=== PATIENT | male | born 1985 | race Hispanic/Latino ===

== ENCOUNTER 2017-12-01 15:02 | Outpatient (CLI) | payer BC | END 2017-12-01 15:03 | disposition home or self-care (01) | LOC: BICULT 15:02 | PROVIDERS: ATTEND Student in an Organized Health Care Education/Training Program | DX: N50.89 Other specified disorders of the male genital organs (principal); N43.3 Hydrocele, unspecified | CPT/HCPCS: 76870; 93976 ==

== ENCOUNTER 2017-12-23 12:41 | Outpatient (CLI) | payer BC ==
[2017-12-23 13:28] LABS: #Eosinphils 0.1 thou/uL (0.0-0.7); #Lymphocytes 2.6 thou/uL (1.20-3.40); #Monocytes 0.6 thou/uL (0.11-0.59); #Neutrophils 5.7 thou/uL (1.40-6.50); %Basophils 0.5 % (0.0-1.0); %Eosinophils 1.2 % (0.0-10.0); %Lymphocytes 28.9 % (21.0-51.0); %Neutrophils 62.5 % (42.0-75.0); Hemoglobin 15.2 g/dL (14.0-18.0); Mean Corpuscular HGB CONC 35.8 g/dL (32.0-36.0); Mean Corpuscular Hemoglobin 31.6 pg (27.0-31.0); Mean Corpuscular Volume 88.3 fL (78.0-98.0); Mean Platelet Volume 6.6 fL (7.4-10.4); Platelet Count 215 thou/uL (130-400); RBC Distribution Width 11.3 % (11.5-14.5); White Blood Cell (WBC) Count 9.1 thou/uL (4.8-10.8)
[2017-12-23 13:54] LABS: Anion Gap 14 mmol/L (10-20); BUN (Urea Nitrogen) 10 mg/dL (8.9-20.6); Calc. Creatinine Clearance 0 mL/min (70-130); Calcium 9.4 mg/dL (7.8-10.44); Carbon Dioxide 24 mmol/L (22-29); Chloride 106 mmol/L (98-107); Estimated GFR-MDRD Greater than 90; Glucose 92 mg/dL (70-105); Sodium 140 mmol/L (136-145)
== END 2017-12-23 12:42 | disposition home or self-care (01) ==
LOC: LABBT 12:41
PROVIDERS: ATTEND Specialist
DX: Z01.812 Encounter for preprocedural laboratory examination (principal); K40.90 Unilateral inguinal hernia, without obstruction or gangrene, not specified as recurrent
CPT/HCPCS: 80048; 85025

== ENCOUNTER 2017-12-28 05:51 | Day surgery (SDC) | payer BC ==
--- NOTE | 2017-12-22 14:46 | HP ---
DATE OF : 1985 HISTORY OF PRESENT ILLNESS: Mackenzie Light is a 32-year-old male patient who works for the [employer], does heavy lifting on occasion. He has noted that he had swelling in his left groin since he was 26 years of age. He has noticed waxing and waning left groin mass. Ultrasound obtained at [facility] 12/01/2017 reveals changes consistent with a small left hydrocele, normal testi cles otherwise. Today his exam reveals a left inguinal hernia, it is reducible. Right groin without hernia. Testicles are normal. ALLERGIES: None. SOCIAL HISTORY: Tobacco none. Alcohol rarely. MEDICATIONS: None routinely. PAST SURGICAL HISTORY: Noncontributory. PAST MEDICAL HISTORY: Noncontributory. REVIEW OF SYSTEMS: Ten point noncontributory. PHYSICAL EXAMINATION: VITAL SIGNS: Weight 230 pounds, 5 foot 8 inches, 135/80, 91 heart rate, 98.6 degrees. HEENT: Unremarkable. LUNGS: Clear to auscultation. CARDIAC: Regular rate and rhythm without murmur or gallop. ABDOMEN: Soft, obese, nontender. EXTREMITIES: Unremarkable. No ankle edema. : Testicles normal. On standing, right groin without hernia. On Valsalva standing exam the left groin reveals a large inguinal hernia that is reducible when supine. NEUROLOGIC: Intact. No focal deficits. ASSESSMENT AND PLAN: Left inguinal hernia. Would recommend repair using mesh robotically with at th e time of surgery look at his right side laparoscopic robotic and repair that if a hernia present, al though clinical exam does not reveal a hernia. He is asymptomatic on the right. He understands the risks and benefits including infection, bleeding, reoperation, chronic pain, recurrence of hernia and consents. He understands and consents to the use of mesh.
[2017-12-23 12:55] VITALS: BMI 34.9
[2017-12-28] MEDS ORDERED: CEFAZOLIN/Water 2 GM/20 ML SYRINGE ONE (06:59)
[2017-12-28] MEDS ORDERED: Ketorolac Tromethamine 30 MG/ML VIAL ONE (06:59)
[2017-12-28] MEDS ORDERED: Bupivacaine HCl 0.5%/Epinephrine 1:200,000/PF 30 ml Vial ONE (07:00)
[2017-12-28] MEDS ORDERED: Bupivacaine/Epinephrine 0.25% 30 ML VIAL ONE (07:02)
[2017-12-28] MEDS ORDERED: Fentanyl 100 MCG/2 ML VIAL ONE ×3 (07:18→10:16)
[2017-12-28] MEDS ORDERED: Midazolam HCl 2 mg/2 ml Vial ONE (07:18)
[2017-12-28] MEDS ORDERED: HYDROmorphone 0.5 MG/0.5 ML SYRINGE ONE (07:18)
--- NOTE | 2017-12-28 10:04 | OP ---
DATE OF PROCEDURE: 12/28/2017 PREOPERATIVE DIAGNOSIS: Indirect left inguinal hernia. PROCEDURE: Robotic left inguinal hernia repair, 3DMax mesh large. SURGEON: Dr. Elvis Farrell ANESTHESIA: General. Local 0.5% Marcaine with epinephrine, 30 mL. PROCEDURE: The patient was taken to the operating room where under general anesthesia, Blood cathete r was placed at the beginning of the procedure and removed at the end. Abdomen was clipped of hair, prepared with ChloraPrep, draped in routine fashion. Supraumbilical left midline incision made. Pne umoperitoneum to 15 mmHg obtained with the Veress needle replacing it with an 11 port. Laparoscope i ntroduced and bilateral lateral mid abdominal incision was made and an 8 mm ports placed. Robot was docked, positioned and instruments inserted and robotic inguinal hernia repair undertaken incising th e peritoneum, doing anterior superior iliac spine laterally to the midline developing a peritoneal fl ap, developing it inferiorly, medially to the Rafael's ligament laterally developed in the peritoneum , identifying the large indirect hernia sac, carefully dissecting it free. There was abundant omentu m in this required reduction in the abdominal cavity, adhesions taken down with the cautery. After d issection of the sac free from the cord structures, a Ray-Komal was inserted for hemostasis. Good hemo stasis noted. Ray-Komal placed laterally in the pelvis temporarily and mesh inserted, 3DMax large and placed over the defect securing the mesh medially to Rafael ligament with 2-0 Vicryl suture and anter olaterally to the abdominal wall with 2-0 Vicryl suture. It had good coverage of at least 5 cm of th e cord structures covering the defect well. Good hemostasis noted. Peritoneum closed with continuou s suture of 2-0 V-Loc suture. Peritoneal defect closed with 2-0 V-Loc suture. All needles and instr uments and Ray-Komal removed. Pneumoperitoneum reduced and all skin incisions approximated with interr upted subdermal 4-0 Monocryl and DermaGlue applied. The patient tolerated the procedure well.
[2017-12-28] MEDS ORDERED: Promethazine HCl 25 MG/ML VIAL ONE (10:18)
[2017-12-28] MEDS ORDERED: HYDROcodone/Acetaminophen 5/325 mg Tablet ONE (12:43)
== END 2017-12-28 13:30 | disposition home or self-care (01) ==
LOC: SDC 05:51
PROVIDERS: ATTEND Specialist
PROC: 0YU64JZ Supplement Left Inguinal Region with Synthetic Substitute, Percutaneous Endoscopic Approach (ICD-10-PCS; principal; 2017-12-28)
DX: K40.90 Unilateral inguinal hernia, without obstruction or gangrene, not specified as recurrent (principal); Z88.5 Allergy status to narcotic agent
CPT/HCPCS: 96374; 96375; 96376; C1781; J0131; J0670; J1170; J1885; J2250; J2550; J3010

== ENCOUNTER 2025-04-16 11:06 | Outpatient (CLI) | payer BC | END 2025-04-16 11:07 | disposition home or self-care (01) | LOC: BICRAD 11:06 | PROVIDERS: ATTEND Family Medicine | DX: M25.561 Pain in right knee (principal) ==